=== PATIENT | female | born 1955 | race African-American/Black ===

== ENCOUNTER 2020-12-08 12:23 | Emergency (ER) | payer OTHER ==
[2020-12-08 12:28] VITALS: BMI 36.6
[2020-12-08] MEDS ORDERED: SODIUM CHLORIDE 1,000 ML IV STA (13:05)
[2020-12-08 13:48] LABS: EPI CELLS 13 /uL (0-25.1); HYALINE CASTS 0 /uL (0-3.1); URINE APPEARANCE CLEAR; URINE BACTERIA 1028 /uL (0-1359); URINE BILIRUBIN NEGATIVE (NEGATIVE); URINE COLOR YELLOW; URINE GLUCOSE (UA) NEGATIVE (NEGATIVE); URINE KETONE NEGATIVE (NEGATIVE); URINE LEUK ESTERASE TRACE (NEGATIVE); URINE NITRITE NEGATIVE (NEGATIVE); URINE PROTEIN NEGATIVE (NEGATIVE); URINE RBC 4 /uL (0-23.9); URINE UROBILINOGEN 0.2 mg/dL (0.2-1.0); URINE WBC 32 /uL (0-25.8)
[2020-12-08 13:52] LABS: BASO % 1.1 % (0-2.0); HEMOGLOBIN 10.9 GM/dL (10.7-15.3); LYMPH % 35.9 % (8-40); MCH 26.4 pg (25.7-33.7); MCHC 33.1 g/dl (32.0-36.0); MEAN CELL VOLUME 79.6 fl (80-96); MEAN PLT VOLUME 9.5 fl (7.5-11.1); MONO % 6.9 % (3.8-10.2); NEUT % 55.1 % (42.8-82.8); PLATELET COUNT 274 K/MM3 (134-434); RBC 4.15 M/mm3 (3.60-5.2); RDW 13.6 % (11.6-15.6); WHITE BLOOD COUNT 5.8 K/mm3 (4.0-10.0)
[2020-12-08 14:00] LABS: INR 0.97 (0.83-1.09); PROTHROMBIN TIME (PATIENT) 11.9 SEC (9.7-13.0)
[2020-12-08 14:06] LABS: CHLORIDE 106 mmol/L (98-107); POTASSIUM 5.2 mmol/L (3.5-5.1); SODIUM 142 mmol/L (136-145)
[2020-12-08 14:08] LABS: ALBUMIN 3.7 g/dl (3.4-5.0); ANION GAP 7 MMOL/L (8-16); CALCIUM 9.6 mg/dL (8.5-10.1); CO2 28 mmol/L (21-32)
[2020-12-08 14:09] LABS: BLOOD UREA NITROGEN 12.9 mg/dL (7-18); GLUCOSE,RANDOM 98 mg/dL (74-106)
[2020-12-08 14:11] LABS: SGPT/ALT 24 U/L (13-61)
[2020-12-08 14:12] LABS: CREATININE 0.9 mg/dL (0.55-1.3); SGOT/AST 36 U/L (15-37)
[2020-12-08 14:13] LABS: BILIRUBIN,TOTAL 0.4 mg/dL (0.2-1)
[2020-12-08 14:14] LABS: ALK PHOS 74 U/L (45-117)
[2020-12-08 15:23] VITALS: BP 146/78; PULSE 72; TEMP 98.5
== END 2020-12-08 15:24 | disposition home or self-care (01) ==
LOC: JER 12:23
PROC: 3E0337Z Introduction of Electrolytic and Water Balance Substance into Peripheral Vein, Percutaneous Approach (ICD-10-PCS; principal; 2020-12-08)
DX: N30.00 Acute cystitis without hematuria (principal)
CPT/HCPCS: 36415; 80053; 81003; 82550; 82553; 84484; 85025; 85610; 87086; 87186; 93005; 93010; 99284-25

== ENCOUNTER 2021-03-07 09:41 | Emergency (ER) | payer OTHER ==
[2021-03-07 09:48] VITALS: BP 145/81; PULSE 72; TEMP 97.7; BMI 36.9
[2021-03-07 11:02] LABS: ALBUMIN 3.4 g/dl (3.4-5.0); BLOOD UREA NITROGEN 11.1 mg/dL (7-18)
[2021-03-07 11:03] LABS: CALCIUM 8.8 mg/dL (8.5-10.1)
[2021-03-07 11:05] LABS: CREATININE 0.9 mg/dL (0.55-1.3); URIC ACID 4.9 mg/dL (2.6-7.2)
[2021-03-07 11:07] LABS: BILIRUBIN,TOTAL 0.4 mg/dL (0.2-1); TOT PROT 6.9 g/dl (6.4-8.2)
== END 2021-03-07 12:20 | disposition home or self-care (01) ==
LOC: JER 09:41
DX: R22.42 Localized swelling, mass and lump, left lower limb (principal)
CPT/HCPCS: 36415; 80053; 84550; 93971-TC; 99284-25

== ENCOUNTER 2022-04-02 12:23 | Emergency (ER) | payer OTHER ==
[2022-04-02 12:33] VITALS: BP 132/54; PULSE 73; TEMP 98.2; BMI 36.6
[2022-04-02 13:16] LABS: BASO % 1.3 % (0-2.0); EOS % 1.2 % (0-4.5); HEMATOCRIT 33.8 % (32.4-45.2); LYMPH % 33.8 % (8-40); MCH 25.6 pg (25.7-33.7); MCHC 32.7 g/dl (32.0-36.0); MEAN CELL VOLUME 78.2 fl (80-96); MEAN PLT VOLUME 8.8 fl (7.5-11.1); MONO % 6.7 % (3.8-10.2); PLATELET COUNT 230 10^3/uL (134-434); RBC 4.31 M/mm3 (3.60-5.2); RDW 13.3 % (11.6-15.6); WHITE BLOOD COUNT 5.6 K/mm3 (4.0-10.0)
[2022-04-02 13:35] LABS: EPI CELLS 11 /uL (0-25.1); HYALINE CASTS 0 /uL (0-3.1); URINE APPEARANCE CLEAR; URINE BACTERIA 750 /uL (0-1359); URINE BILIRUBIN NEGATIVE (NEGATIVE); URINE COLOR YELLOW; URINE GLUCOSE (UA) NEGATIVE (NEGATIVE); URINE KETONE NEGATIVE (NEGATIVE); URINE LEUK ESTERASE TRACE (NEGATIVE); URINE NITRITE NEGATIVE (NEGATIVE); URINE PROTEIN NEGATIVE (NEGATIVE); URINE UROBILINOGEN 0.2 mg/dL (0.2-1.0); URINE WBC 15 /uL (0-25.8)
[2022-04-02 13:42] LABS: CALCIUM 9.5 mg/dL (8.5-10.1)
[2022-04-02 13:43] LABS: ALBUMIN 3.7 g/dl (3.4-5.0); BLOOD UREA NITROGEN 12.1 mg/dL (7-18)
[2022-04-02 13:46] LABS: CREATININE 0.9 mg/dL (0.55-1.3)
[2022-04-02 13:47] LABS: URINE RBC 22.4 /uL (0-23.9)
[2022-04-02 13:48] LABS: BILIRUBIN,TOTAL 0.2 mg/dL (0.2-1); TOT PROT 7.7 g/dl (6.4-8.2)
[2022-04-02] MEDS ORDERED: SODIUM CHLORIDE 1,000 ML IV STA (15:12)
== END 2022-04-02 17:29 | disposition home or self-care (01) ==
LOC: JER 12:23
PROC: 3E0337Z Introduction of Electrolytic and Water Balance Substance into Peripheral Vein, Percutaneous Approach (ICD-10-PCS; principal; 2022-04-02)
DX: R42 Dizziness and giddiness (principal)
CPT/HCPCS: 36415; 71045-TC-FY; 80053; 81003; 84484; 85025; 87086; 87186; 93005; 93010; 99285-25